=== PATIENT | female | born 1955 | race Two or more races ===

== ENCOUNTER 2016-06-23 11:37 | Emergency (ER) | payer BC, OTHER ==
[~2016-06-23] VITALS: Ht 152.4 cm; Wt 61.2 kg
[2016-06-23 11:50] VITALS: BP 129/87
[2016-06-23] MEDS ORDERED: predniSONE 20 MG TABLET ONE (12:07)
[2016-06-23] MEDS ORDERED: FAMOTIDINE (20 MG) 20 MG TABLET ONE (12:07)
[2016-06-23] MEDS ORDERED: diphenhydrAMINE HCL 25 MG CAPSULE ONE (12:07)
[2016-06-23] MEDS ORDERED: FAMOTIDINE (20 MG) 20 MG TABLET PO ONE (12:30)
[2016-06-23] MEDS ORDERED: diphenhydrAMINE HCL 25 MG CAPSULE PO ONE (12:30)
[2016-06-23] MEDS ORDERED: predniSONE 20 MG TABLET PO ONE (12:30)
== END 2016-06-23 12:24 | disposition home or self-care (01) ==
LOC: ER 11:41
DX: T78.40XA Allergy, unspecified, initial encounter (principal); E78.00 Pure hypercholesterolemia, unspecified; E11.9 Type 2 diabetes mellitus without complications; I10 Essential (primary) hypertension; Z85.3 Personal history of malignant neoplasm of breast; Z90.710 Acquired absence of both cervix and uterus; Z90.13 Acquired absence of bilateral breasts and nipples; Z88.1 Allergy status to other antibiotic agents; Z88.8 Allergy status to other drugs, medicaments and biological substances
CPT/HCPCS: A4606; Q0163; Z7610

== ENCOUNTER 2016-08-02 08:12 | Outpatient (CLI) | payer BC, OTHER ==
[2016-08-02 09:40] LABS: BASOPHILS % (AUTO) 0.6 % (0.0-2.0); EOSINOPHILS # (AUTO) 0.3 /CMM (0.0-0.7); EOSINOPHILS % (AUTO) 4.1 % (0.0-6.0); HEMATOCRIT 46 % (33-45); HEMOGLOBIN 15.1 g/dL (11.5-14.8); LYMPHOCYTES % (AUTO) 41.1 % (20.0-44.0); MEAN CORPUSCULAR HEMOGLOBIN 26 PG (26.0-33.0); MEAN CORPUSCULAR HGB CONC 33 g/dl (31.0-36.0); MEAN CORPUSCULAR VOLUME 80 fL (82-100); MONOCYTES # (AUTO) 0.5 /CMM (0.1-1.30); MONOCYTES % (AUTO) 6.5 % (2.0-12.0); NEUTROPHILS # (AUTO) 3.4 /CMM (1.8-8.9); NEUTROPHILS % (AUTO) 47.7 % (43.0-81.0); PLATELET COUNT (AUTO) 282 /CMM (150-450); RDW COEFFICIENT OF VARIATION 13.8 (11.5-15.0); RED BLOOD CELL COUNT(AUTO) 5.82 MIL/uL (4.0-5.2); WHITE BLOOD COUNT (AUTO) 7.2 K/uL (4.3-11.0)
[2016-08-02 10:06] LABS: APPEARANCE,URINE SL CLOUDY (CLEAR); BILIRUBIN,URINE NEGATIVE (NEGATIVE); BLOOD, URINE TRACE-INTA Ery/uL (NEGATIVE); COLOR,URINE YELLOW (YELLOW); KETONES,URINE NEGATIVE (NEGATIVE); LEUKOCYTE ESTERASE ,URINE 1+ (NEGATIVE); NITRITE, URINE NEGATIVE (NEGATIVE); PH,URINE 7.5 (5.0-8.0); PROTEIN,URINE NEGATIVE (NEGATIVE); UGLUCOSE NEGATIVE (NEGATIVE); UROBILINOGEN,URINE 0.2 EU/dL (0.2)
[2016-08-02 10:09] LABS: ALBUMIN 4.1 g/dL (3.4-5.0); BILIRUBIN,TOTAL 0.4 mg/dL (0.2-1.0); CALCIUM, SERUM 9.5 mg/dL (8.5-10.1); CREATININE 0.8 mg/dL (0.6-1.3); POTASSIUM 3.8 mmol/L (3.5-5.1); TOTAL PROTEIN, SERUM 8.1 g/dL (6.4-8.2)
[2016-08-02 10:19] LABS: THYROID STIMULATING HORMONE 1.726 uIU/mL (0.358-3.74); URIC ACID 6.8 mg/dL (2.6-7.2)
[2016-08-02 10:31] LABS: ADD URINE CULTURE YES; BACTERIA,URINE Few /HPF (None Seen); SQUAMOUS EPITHELIAL CELL,UR Rare /HPF (None Seen)
== END 2016-08-02 23:59 | disposition home or self-care (01) ==
LOC: LAB 08:12
PROVIDERS: ATTEND Legal Medicine
DX: Z00.01 Encounter for general adult medical examination with abnormal findings (principal); E11.9 Type 2 diabetes mellitus without complications; I10 Essential (primary) hypertension; E03.9 Hypothyroidism, unspecified; D64.9 Anemia, unspecified
CPT/HCPCS: 36415; 80053-TC; 80061-TC; 81000-TC; 82043; 82306; 82728-TC; 82746; 83540-TC; 84439-TC; 84443-TC; 84550-TC; 85025-TC; 87086-TC

== ENCOUNTER 2017-01-25 06:01 | Inpatient (IN) | payer BC ==
[~2017-01-25] VITALS: Ht 152.4 cm; Wt 68.0 kg
[2017-01-25 06:20] VITALS: BP 127/81
--- NOTE | 2017-01-25 06:20 | NUR ---
MS/JENNIFER; ADMITTED 61 YEARS OLD FEMALE PT A/O X 4. FOR SURGERY THIS AM . DENIES PAIN. FOR EXPLORATION OF RT IJ SHARLENE CATH. CONSENT SIGNED BY THE PT PER CHARGE NURSE. PT ON NPO AND SHE SAID YES. WILL ENDORSE TO THE DAY SHIFT NURSE.
--- NOTE | 2017-01-25 07:20 | NUR ---
MS RN OPENING NOTE RECEIVED SBAR REPORT AT THE BEDSIDE. PATIENT IS IN BED AWAKE, A/O X4.BED IS LOCKED, AT LOWEST POSITION. SIDE RAILS UP X2. CALL LIGHT WITHIN REACH. EDUCATED PATIENT TO CALL FOR HELP/ASSISTANCE USING A CALL LIGHT VIA TEACH BACK METHOD. PATIENT VERBALIZED UNDERSTANDING. ALL NEEDS ARE MET. WILL CONTINUE TO ASSESS/MONITOR THROUGHOUT THE SHIFT.
[2017-01-25] MEDS ORDERED: LIDOCAINE 1% INJ 50 ML MDV IJ ONE (07:32)
--- NOTE | 2017-01-25 07:40 | NUR ---
MS RN NOTE PATIENT WAS TAKEN TO OR FOR SCHEDULED PROCEDURE OF RT IJ CATH REMOVAL. VS WNL. LEFT THE UNIT IN STABLE CONDITION.
[2017-01-25] MEDS ORDERED: FENTANYL PF 100MCG/2ML AMPUL ONE (07:52)
[2017-01-25] MEDS ORDERED: BUPIVACAINE 0.25% 75 MG/30 ML VIAL ONE (08:57)
[2017-01-25] MEDS ORDERED: HYDROCODONE/APAP 5/325MG 1 EACH TABLET PO PRN ×2 (10:00)
[2017-01-25] MEDS ORDERED: MORPHINE SULFATE INJ 2 MG/ML DISP.SYRIN IV PRN (10:00)
[2017-01-25] MEDS ORDERED: ONDANSETRON HCL/PF 4 MG/2 ML VIAL IVP PRN (10:00)
[2017-01-25 10:15] VITALS: BP 135/79
--- NOTE | 2017-01-25 10:15 | NUR ---
MS RN NOTE PATIENT IS BACK TO THE UNIT IN STABLE CONDITION. PATIENT IS TO BE DISCHARGED HOME PER MD.
[2017-01-25] MEDS ORDERED: HYDR25TA4 PO (11:53)
[2017-01-25] MEDS ORDERED: AMIT25TA9 PO (11:53)
[2017-01-25] MEDS ORDERED: ASPI81TA2 PO (11:53)
[2017-01-25] MEDS ORDERED: AMLO5TAB2 PO (11:53)
[2017-01-25] MEDS ORDERED: ANAS1TAB8 PO (11:53)
[2017-01-25] MEDS ORDERED: SIMV20TA6 PO (11:53)
[2017-01-25] MEDS ORDERED: LISI40TA4 PO (11:53)
[2017-01-25] MEDS ORDERED: ASCO500T9 PO (11:53)
[2017-01-25] MEDS ORDERED: METF500T4 PO (11:53)
[2017-01-25] MEDS ORDERED: CHOL100044 PO (11:53)
[2017-01-25 11:58] VITALS: BP 131/77
--- NOTE | 2017-01-25 12:11 | NUR ---
MS MOUNTED POLICE OFFICER NOTE PATIENT LEFT THE UNIT IN STABLE CONDITION ACCOMPANIED BY THE GAYLE. IV CATHETER REMOVED WITH THE TIP PRESENT. NO S/S OF INFECTION/INFILTRATION. OCCLUSIVE DRESSING APPLIED. DISCHARGE INSTRUCTIONS PROVIDED TO PATIENT/FAMILY. PATIENT/FAMILY VERBALIZED FULL UNDERSTANDING OF THE TEACHINGS. ALL BELONGINGS ARE ACCOUNTED FOR.
== END 2017-01-25 12:10 | disposition home or self-care (01) | DRG 950 ==
LOC: DS 06:01 → MED 06:09
PROVIDERS: ADMIT Surgery; ATTEND Surgery
PROC: 0JPV3WZ Removal of Totally Implantable Vascular Access Device from Upper Extremity Subcutaneous Tissue and Fascia, Percutaneous Approach (ICD-10-PCS; principal; 2017-01-25 08:00)
DX: Z45.2 Encounter for adjustment and management of vascular access device (principal); E11.9 Type 2 diabetes mellitus without complications; I10 Essential (primary) hypertension; Z85.3 Personal history of malignant neoplasm of breast; Z90.13 Acquired absence of bilateral breasts and nipples; Z92.21 Personal history of antineoplastic chemotherapy
CPT/HCPCS: 82962-TC; 88300-TC; J0690; J2704; J3010; J3490; Z7610

== ENCOUNTER 2017-02-20 09:31 | Emergency (ER) | payer BC, OTHER ==
[~2017-02-20] VITALS: Ht 152.4 cm; Wt 68.0 kg
[~2017-02-20 09:31] MED LIST: AMIT25TA9 PO; AMLO5TAB2 PO; ANAS1TAB8 PO; ASCO500T9 PO; ASPI81TA2 PO; CHOL100044 PO; HYDR25TA4 PO; LISI40TA4 PO; METF500T4 PO; SIMV20TA6 PO
[2017-02-20 09:34] VITALS: BP 134/74
[2017-02-20] MEDS ORDERED: diphenhydrAMINE HCL 50 MG CAPSULE ONE (10:22)
[2017-02-20] MEDS ORDERED: SULFAMETH/TRIMETH 800/160 MG 1 UDTAB TABLET PO ONE ×2 (10:22→10:30)
[2017-02-20] MEDS ORDERED: diphenhydrAMINE HCL 25 MG CAPSULE PO ONE (10:30)
== END 2017-02-20 10:31 | disposition home or self-care (01) ==
LOC: ER 09:32
DX: R21 Rash and other nonspecific skin eruption (principal); E11.9 Type 2 diabetes mellitus without complications; Z90.13 Acquired absence of bilateral breasts and nipples; Z88.1 Allergy status to other antibiotic agents; Z88.8 Allergy status to other drugs, medicaments and biological substances; Z79.84 Long term (current) use of oral hypoglycemic drugs; Z79.82 Long term (current) use of aspirin
CPT/HCPCS: 99283; A4606; Q0163; Z7610

== ENCOUNTER 2017-02-23 12:06 | Emergency (ER) | payer BC, OTHER ==
[~2017-02-23] VITALS: Ht 152.4 cm; Wt 68.0 kg
[2017-02-23 12:29] VITALS: BP 124/76
== END 2017-02-23 12:40 | disposition home or self-care (01) ==
LOC: ER 12:08
DX: T78.49XA Other allergy, initial encounter (principal); X58.XXXA Exposure to other specified factors, initial encounter; E11.9 Type 2 diabetes mellitus without complications; Z90.13 Acquired absence of bilateral breasts and nipples; Z88.1 Allergy status to other antibiotic agents; Z79.82 Long term (current) use of aspirin; Z79.84 Long term (current) use of oral hypoglycemic drugs
CPT/HCPCS: A4606; Z7610

== ENCOUNTER 2019-08-27 15:01 | Emergency (ER) | payer BC, OTHER ==
[~2019-08-27] VITALS: Ht 152.4 cm; Wt 63.5 kg
[~2019-08-27 15:01] MED LIST changes: -AMLO5TAB2 PO; +AMLO5TAB9 PO; +ASCO-352 PO; -ASCO500T9 PO; +ASPI-1169 PO; -ASPI81TA2 PO; +METF-440 PO; -METF500T4 PO; +SIMV-46 PO; -SIMV20TA6 PO
[2019-08-27 15:10] VITALS: BP 145/77
[2019-08-27] MEDS ORDERED: LIDOCAINE /MPF 1% VIAL 5 ML VIAL ONE (15:17)
[2019-08-27] MEDS: SULFAMETH/TRIMETH 800/160 MG 1 UDTAB TABLET PO ONE (15:35)
[2019-08-27] MEDS ORDERED: SULFAMETH/TRIMETH 800/160 MG 1 UDTAB TABLET ONE (15:36)
== END 2019-08-27 15:46 | disposition home or self-care (01) ==
LOC: ER 15:04
DX: L02.811 Cutaneous abscess of head [any part, except face] (principal); I10 Essential (primary) hypertension; E11.9 Type 2 diabetes mellitus without complications; Z98.890 Other specified postprocedural states; Z88.1 Allergy status to other antibiotic agents; Z88.8 Allergy status to other drugs, medicaments and biological substances; Z79.899 Other long term (current) drug therapy; Z79.84 Long term (current) use of oral hypoglycemic drugs; Z79.82 Long term (current) use of aspirin
CPT/HCPCS: A6403; A6407; J3490

== ENCOUNTER 2020-02-27 16:54 | Emergency (ER) | payer BC, OTHER ==
[~2020-02-27] VITALS: Ht 152.4 cm; Wt 61.2 kg
[~2020-02-27 16:54] MED LIST changes: +AMLO-212 PO; -AMLO5TAB9 PO
[2020-02-27] MEDS ORDERED: ONDANSETRON HCL/PF 4 MG/2 ML VIAL IVP ONE (17:30)
[2020-02-27] MEDS ORDERED: IV NS 0.9% 500 ML BAG IV ONE (17:30)
[2020-02-27] MEDS ORDERED: ONDANSETRON HCL/PF 4 MG/2 ML VIAL ONE (17:38)
[2020-02-27 17:44] LABS: BASOPHILS # (AUTO) 0.1 /CMM (0.0-0.2); BASOPHILS % (AUTO) 1.1 % (0.0-2.0); HEMATOCRIT 43 % (33-45); LYMPHOCYTES # (AUTO) 1.6 /CMM (0.8-4.8); LYMPHOCYTES % (AUTO) 33.7 % (20.0-44.0); MEAN CORPUSCULAR HGB CONC 32 g/dl (31.0-36.0); MEAN CORPUSCULAR VOLUME 81 fL (82-100); MONOCYTES # (AUTO) 0.4 /CMM (0.1-1.30); MONOCYTES % (AUTO) 8.3 % (2.0-12.0); NEUTROPHILS # (AUTO) 2.7 /CMM (1.8-8.9); NEUTROPHILS % (AUTO) 56.9 % (43.0-81.0); PLATELET COUNT (AUTO) 227 /CMM (150-450); RED BLOOD CELL COUNT(AUTO) 5.33 MIL/uL (4.0-5.2); WHITE BLOOD COUNT (AUTO) 4.7 K/uL (4.3-11.0)
--- NOTE | 2020-02-27 17:49 | NUR ---
c/o body aches, nausea vomiting, and abd cramping x 3 days went to urgent care and got tested for covid "positive". PT AAOX4, VSS. RR EVEN & UNLABORED. DENIES CP, SOB, DIZZINESS AT THIS TIME. PT SEEN & EVAL'D BY DR. HUNTER. MEDICATED ORDERED, PT SANIA WELL. WILL CONT TO MONITOR.
[2020-02-27 17:56] LABS: ALBUMIN 3.3 g/dL (3.4-5.0); BILIRUBIN,DIRECT 0.2 mg/dL (0.0-0.2); BILIRUBIN,TOTAL 0.3 mg/dL (0.2-1.0); CALCIUM, SERUM 8.3 mg/dL (8.5-10.1); CREATININE 0.6 mg/dL (0.6-1.3); TOTAL PROTEIN, SERUM 7.6 g/dL (6.4-8.2)
--- NOTE | 2020-02-27 18:32 | NUR ---
Patient discharged to home in stable condition. Written and verbal after care instructions given. Patient verbalizes understanding of instruction. IV removed. Catheter intact and site benign. Pressure and 4x4 applied to site. No bleeding noted.
[2020-02-27 18:33] VITALS: BP 128/75
--- NOTE | 2020-02-27 18:34 | NUR ---
IV removed. Catheter intact and site benign. Pressure and 4x4 applied to site. No bleeding noted.
== END 2020-02-27 18:35 | disposition home or self-care (01) ==
LOC: ER 16:57
DX: U07.1 COVID-19 (principal); R11.2 Nausea with vomiting, unspecified; Z85.3 Personal history of malignant neoplasm of breast; Z90.13 Acquired absence of bilateral breasts and nipples; Z88.8 Allergy status to other drugs, medicaments and biological substances; Z79.82 Long term (current) use of aspirin; Z79.84 Long term (current) use of oral hypoglycemic drugs; E11.9 Type 2 diabetes mellitus without complications
CPT/HCPCS: 36415; 71045; 80048; 80076; 83690; 85025; 93005; 96361; 96374; 99285; J2405; J7040

== ENCOUNTER 2020-03-17 11:36 | Outpatient (CLI) | payer BC, OTHER ==
[2020-03-17 12:41] LABS: BASOPHILS # (AUTO) 0.1 /CMM (0.0-0.2); BASOPHILS % (AUTO) 0.9 % (0.0-2.0); EOSINOPHILS % (AUTO) 1.9 % (0.0-6.0); HEMATOCRIT 46 % (33-45); HEMOGLOBIN 14.7 g/dL (11.5-14.8); LYMPHOCYTES # (AUTO) 2.1 /CMM (0.8-4.8); LYMPHOCYTES % (AUTO) 35.8 % (20.0-44.0); MEAN CORPUSCULAR HGB CONC 32 g/dl (31.0-36.0); MEAN CORPUSCULAR VOLUME 81 fL (82-100); MONOCYTES # (AUTO) 0.5 /CMM (0.1-1.30); MONOCYTES % (AUTO) 8.9 % (2.0-12.0); NEUTROPHILS # (AUTO) 3.1 /CMM (1.8-8.9); NEUTROPHILS % (AUTO) 52.5 % (43.0-81.0); PLATELET COUNT (AUTO) 349 /CMM (150-450); RED BLOOD CELL COUNT(AUTO) 5.65 MIL/uL (4.0-5.2); WHITE BLOOD COUNT (AUTO) 5.9 K/uL (4.3-11.0)
[2020-03-17 13:26] LABS: ALBUMIN 3.8 g/dL (3.4-5.0); BILIRUBIN,TOTAL 0.7 mg/dL (0.2-1.0); CALCIUM, SERUM 9.5 mg/dL (8.5-10.1); CREATININE 0.7 mg/dL (0.6-1.3); POTASSIUM 3.7 mmol/L (3.5-5.1); TOTAL PROTEIN, SERUM 7.9 g/dL (6.4-8.2)
== END 2020-03-17 23:59 | disposition home or self-care (01) ==
LOC: LAB 11:36
DX: C50.919 Malignant neoplasm of unspecified site of unspecified female breast (principal)
CPT/HCPCS: 80053-TC; 82378; 83615-TC; 85025-TC

== ENCOUNTER 2020-10-24 10:37 | Outpatient (CLI) | payer BC, OTHER ==
[~2020-10-24 10:37] MED LIST changes: +LISI40TA13 PO; -LISI40TA4 PO
== END 2020-10-24 23:59 | disposition home or self-care (01) ==
LOC: MRI 10:37
PROVIDERS: ATTEND Legal Medicine
DX: M50.11 Cervical disc disorder with radiculopathy, high cervical region (principal); M48.02 Spinal stenosis, cervical region; M25.78 Osteophyte, vertebrae
CPT/HCPCS: 72141-TC

== ENCOUNTER 2021-03-01 10:17 | Outpatient (CLI) | payer BC, OTHER | END 2021-03-01 23:59 | disposition home or self-care (01) | LOC: LAB 10:17 | PROVIDERS: ATTEND Internal Medicine Gastroenterology | DX: Z01.812 Encounter for preprocedural laboratory examination (principal); Z20.822 Contact with and (suspected) exposure to COVID-19 | CPT/HCPCS: C9803; U0003 ==

== ENCOUNTER 2021-03-06 11:45 | Day surgery (SDC) | payer BC, OTHER ==
--- NOTE | 2021-03-06 10:00 | NUR ---
PLATFORM LOADER NOTE. PT IN BED COMFORTABLE. V/S CHECKED. IN STABLE CONDITION. ADMITTED FOR DAY SX OF EGD. CONSENTS SIGNED. NO IV PRESENT. A/O X4 AND PASHTO SPEAKING. NO COMPLAINT OF PAIN OR NAUSEA. NO SOB OR RESPIRATORY DISTRESS. SELF AMBULATORY. SKIN INTACT. PROCEDURE TO BE DONE AT 1230. PT UP TO DATE WITH PNEUMONIA, FLU, AND COVID VACCINATIONS. WILL CONTINUE TO MONITOR.
--- NOTE | 2021-03-06 14:45 | NUR ---
TRIAGE LICENSED PRACTICAL NURSE NOTE PT DISCHARGED HOME. ID BANDS REMOVED. IV LINE NOT PRESENT. SKIN INTACT. BELONGINGS LIST DONE AND SIGNED BY PT. NO NEW PRESCRIPTIONS. EXITCARE EDUCATION UTILIZED AND GIVEN TO PT. V/S STABLE. PT AWARE. PT TRANSPORTED HOME VIA PRIVATE CAR.
== END 2021-03-06 18:00 | disposition home or self-care (01) ==
LOC: DS 11:45 → MED 11:47 → UNDOADMIN 11:47 → UNDODISIN 15:00 → DS 18:00
PROVIDERS: ATTEND Internal Medicine Gastroenterology
DX: K57.30 Diverticulosis of large intestine without perforation or abscess without bleeding (principal); K64.8 Other hemorrhoids; D12.2 Benign neoplasm of ascending colon; I10 Essential (primary) hypertension; E11.9 Type 2 diabetes mellitus without complications; Z98.890 Other specified postprocedural states; Z79.899 Other long term (current) drug therapy
CPT/HCPCS: 45380; 88305; J2704; J3490; J7030; G0378

== ENCOUNTER 2021-08-28 09:59 | Outpatient (CLI) | payer BC, OTHER | END 2021-08-28 23:59 | disposition home or self-care (01) | LOC: RAD 09:59 | PROVIDERS: ATTEND Internal Medicine | DX: R06.2 Wheezing (principal) | CPT/HCPCS: 71045-TC ==

== ENCOUNTER 2022-02-12 08:22 | Emergency (ER) | payer BC, OTHER ==
[~2022-02-12] VITALS: Ht 152.4 cm; Wt 61.2 kg
[2022-02-12 08:22] VITALS: BP 141/78
[2022-02-12] MEDS ORDERED: PRED50TA PO (08:44)
--- NOTE | 2022-02-12 08:48 | NUR ---
PT SEEN BY DR MENDIETA AT BEDSIDE.
--- NOTE | 2022-02-12 08:56 | NUR ---
Patient discharged to home in stable condition. Written and verbal after care instructions given. Patient verbalizes understanding of instruction.
== END 2022-02-12 08:57 | disposition home or self-care (01) ==
LOC: ER 08:22
DX: L25.8 Unspecified contact dermatitis due to other agents (principal); T39.395A Adverse effect of other nonsteroidal anti-inflammatory drugs [NSAID], initial encounter; I10 Essential (primary) hypertension; E11.9 Type 2 diabetes mellitus without complications; E78.00 Pure hypercholesterolemia, unspecified; Z85.3 Personal history of malignant neoplasm of breast; Z88.8 Allergy status to other drugs, medicaments and biological substances; Z79.899 Other long term (current) drug therapy; Y92.89 Other specified places as the place of occurrence of the external cause

== ENCOUNTER 2022-02-12 09:00 | Outpatient (CLI) | payer BC, OTHER ==
[~2022-02-12 09:00] MED LIST changes: +PRED50TA PO
[2022-02-12 10:06] LABS: BASOPHILS % (AUTO) 0.2 % (0.0-2.0); EOSINOPHILS % (AUTO) 9.6 % (0.0-6.0); HEMATOCRIT 42 % (33-45); HEMOGLOBIN 13.7 g/dL (11.5-14.8); LYMPHOCYTES # (AUTO) 1.5 K/uL (0.8-4.8); LYMPHOCYTES % (AUTO) 14.8 % (20.0-44.0); MEAN CORPUSCULAR HGB CONC 32 g/dl (31.0-36.0); MEAN CORPUSCULAR VOLUME 80 fL (82-100); MONOCYTES # (AUTO) 0.8 K/uL (0.1-1.30); MONOCYTES % (AUTO) 7.9 % (2.0-12.0); NEUTROPHILS # (AUTO) 6.7 K/uL (1.8-8.9); NEUTROPHILS % (AUTO) 67.5 % (43.0-81.0); PLATELET COUNT (AUTO) 300 K/uL (150-450); RED BLOOD CELL COUNT(AUTO) 5.28 MIL/uL (4.0-5.2); WHITE BLOOD COUNT (AUTO) 9.9 K/uL (4.3-11.0)
[2022-02-12 10:25] LABS: BILIRUBIN,URINE NEGATIVE (NEGATIVE); COLOR,URINE YELLOW (YELLOW); LEUKOCYTE ESTERASE ,URINE NEGATIVE (NEGATIVE); NITRITE, URINE NEGATIVE (NEGATIVE); PH,URINE 5.5 (5.0-8.0); PROTEIN,URINE NEGATIVE (NEGATIVE); UGLUCOSE NEGATIVE (NEGATIVE); UROBILINOGEN,URINE 0.2 EU/dL (0.2)
[2022-02-12 10:43] LABS: THYROID STIMULATING HORMONE 1.396 uIU/mL (0.358-3.74); URIC ACID 7.1 mg/dL (2.6-7.2)
[2022-02-12 10:52] LABS: BACTERIA,URINE Rare /HPF (None Seen); SQUAMOUS EPITHELIAL CELL,UR Few /HPF (None Seen); WBC,URINE 0-2 /HPF (0-3)
[2022-02-12 10:54] LABS: ALBUMIN 3.3 g/dL (3.4-5.0); BILIRUBIN,TOTAL 0.7 mg/dL (0.2-1.0); CALCIUM, SERUM 8.9 mg/dL (8.5-10.1); CREATININE 0.8 mg/dL (0.6-1.3); POTASSIUM 3.8 mmol/L (3.5-5.1); TOTAL PROTEIN, SERUM 7.7 g/dL (6.4-8.2)
== END 2022-02-12 23:59 | disposition home or self-care (01) ==
LOC: LAB 09:00
PROVIDERS: ATTEND Legal Medicine
DX: Z00.00 Encounter for general adult medical examination without abnormal findings (principal); R53.1 Weakness; E11.9 Type 2 diabetes mellitus without complications; E78.00 Pure hypercholesterolemia, unspecified; E03.9 Hypothyroidism, unspecified; D64.9 Anemia, unspecified; E55.9 Vitamin D deficiency, unspecified
CPT/HCPCS: 36415; 80053-TC; 80061-TC; 81001; 82306; 82607-TC; 82728-TC; 82785; 83540-TC; 84439-TC; 84443-TC; 84550-TC; 85025-TC; 87086-TC